=== PATIENT | female | born 1940 | race Caucasian/White ===

== ENCOUNTER 2018-07-21 16:06 | Emergency (ER) | payer OTHER ==
[~2018-07-21] VITALS: Ht 160 cm; Wt 58.5 kg
[~2018-07-21 16:06] MED LIST: ADULT LOW DOSE81 MG; CRESTOR20 MG; NORVASC2.5 MG; TOPROL XL50 MG; VASOTEC10 MG; XARELTO15 MG PO
[2018-07-21] MEDS ORDERED: LIPITOR20 MG (16:14)
[2018-07-21] MEDS ORDERED: HYDROCHLOROTHIA25 MG (16:15)
[2018-07-21] MEDS ORDERED: ATORVASTATIN CA10 MG (16:15)
== END 2018-07-21 17:47 | disposition home or self-care (01) ==
LOC: ER 16:06
DX: M47.896 Other spondylosis, lumbar region (principal); M54.5 Low back pain

== ENCOUNTER 2020-01-05 12:53 | Emergency (ER) | payer OTHER ==
[~2020-01-05] VITALS: Ht 157.5 cm; Wt 54.4 kg
[~2020-01-05 12:53] MED LIST changes: +ATORVASTATIN CA10 MG; +HYDROCHLOROTHIA25 MG; +LIPITOR20 MG
[2020-01-05] MEDS ORDERED: LEVO-T100 MCG PO (13:02)
[2020-01-05] MEDS ORDERED: ISOSORBIDE DINI30 MG PO (13:02)
[2020-01-05] MEDS ORDERED: CIPRO500 MG PO (14:52)
== END 2020-01-05 14:53 | disposition home or self-care (01) ==
LOC: ER 12:53
DX: R30.0 Dysuria (principal); Z03.818 Encounter for observation for suspected exposure to other biological agents ruled out

== ENCOUNTER 2021-01-20 10:04 | Emergency (ER) | payer OTHER ==
[~2021-01-20] VITALS: Ht 157.5 cm; Wt 59.9 kg
[~2021-01-20 10:04] MED LIST changes: +CIPRO500 MG PO; +ISOSORBIDE DINI30 MG PO; +LEVO-T100 MCG PO
[2021-01-20] MEDS ORDERED: VISTARIL25 MG PO (14:49)
== END 2021-01-20 15:29 | disposition home or self-care (01) ==
LOC: ER 10:04
DX: R00.2 Palpitations (principal); R53.81 Other malaise; F41.8 Other specified anxiety disorders

== ENCOUNTER 2021-07-07 08:55 | Emergency (ER) | payer OTHER ==
[~2021-07-07] VITALS: Ht 157.5 cm; Wt 5.4 kg
[~2021-07-07 08:55] MED LIST changes: +VISTARIL25 MG PO
[2021-07-07] MEDS ORDERED: ISOSORBIDE MONO30 MG PO (09:08)
[2021-07-07] MEDS ORDERED: SYNTHROID100 MCG PO (09:08)
== END 2021-07-07 15:49 | disposition home or self-care (01) ==
LOC: ER 08:55
DX: K29.70 Gastritis, unspecified, without bleeding (principal); K21.9 Gastro-esophageal reflux disease without esophagitis; R10.13 Epigastric pain

== ENCOUNTER 2021-07-12 08:00 | Outpatient (CLI) | payer OTHER ==
[~2021-07-12 08:00] MED LIST changes: +ISOSORBIDE MONO30 MG PO; +SYNTHROID100 MCG PO
== END 2021-07-12 08:30 | disposition home or self-care (01) ==
LOC: PPH VACUNA 08:00
PROVIDERS: ATTEND Emergency Medicine Pediatric Emergency Medicine
DX: Z23 Encounter for immunization (principal)

== ENCOUNTER 2022-01-08 06:27 | Emergency (ER) | payer OTHER ==
[~2022-01-08] VITALS: Ht 157.5 cm; Wt 55.8 kg
== END 2022-01-08 15:23 | disposition home or self-care (01) ==
LOC: ER 06:27
DX: R10.31 Right lower quadrant pain (principal); K57.30 Diverticulosis of large intestine without perforation or abscess without bleeding; N28.1 Cyst of kidney, acquired; I70.90 Unspecified atherosclerosis; I10 Essential (primary) hypertension

== ENCOUNTER 2024-08-23 20:58 | Emergency (ER) | payer OTHER ==
[~2024-08-23] VITALS: Ht 154.9 cm; Wt 49.9 kg
[2024-08-23] MEDS ORDERED: VASOTEC20 MG PO (21:17)
[2024-08-23] MEDS ORDERED: LASIX20 MG PO (21:18)
[2024-08-23] MEDS ORDERED: NORVASC5 MG PO (21:18)
[2024-08-23] MEDS ORDERED: ATORVASTATIN CA10 MG PO (21:19)
[2024-08-23] MEDS ORDERED: ACETAMINOPHEN 500 MG GEL..CAP PO ONE ×2 (23:00→23:09)
[2024-08-23] MEDS ORDERED: LEVALBUTEROL HCL 0.63 MG/3 ML SOLUTION IH ONE (23:00)
[2024-08-23 23:34] LABS: HEMATOCRIT 41.8 % (36.0-45.00); HEMOGLOBIN 13.8 g/dL (12.0-15.00); MEAN CELL VOLUME 88.5 fL (80.00-100.00); MEAN CORPUSCULAR HEMOGLOBIN 29.3 pg (27.00-32.0); MEAN CORPUSCULAR HGB CONC 33.1 g/dl (32.0-36.0); PLATELET COUNT 387 K/uL (150-450); RED BLOOD COUNT 4.72 M/uL (4.00-6.00); RED CELL DISTRIBUTION WIDTH 13.8 % (11.5-14.5)
[2024-08-24] MEDS ORDERED: LEVALBUTEROL HCL 0.63 MG/3 ML SOLUTION IH ONE (00:03)
[2024-08-24 00:07] LABS: ALBUMIN 4.4 gm/dL (3.4-5.0); BILIRUBIN TOTAL 1.35 mg/dL (0.3-1.2); CALCIUM 9.7 mg/dL (8.5-10.1); CREATININE SERUM 0.8 mg/dL (0.55-1.02); GFR 68.5; GLOBULINA 3.3 G/DL (2.4-3.5); POTASSIUM 4.29 mEq/L (3.5-5.1); TOTAL PROTEIN 7.7 gm/dL (6.4-8.2)
[2024-08-24 01:29] LABS: PH,URINE 5.5 (5.0-8.0); URINE APPEARANCE Clear; URINE BILIRRUBIN Negative (NEGATIVE); URINE BLOOD Negative; URINE COLOR Yellow; URINE GLUCOSE Negative (NEGATIVE); URINE KETONE Negative (NEGATIVE); URINE LEUKOCYTE Small; URINE NITRATE Negative; URINE PROTEIN Negative (NEGATIVE); URINE UROBILINOGEN 0.2 E.U./dl
[2024-08-24 01:32] LABS: URINE BACTERIA 37.9 uL (0.0-1933); URINE EPITHELIAL CELLS 1.8 uL (0.0-38.8); URINE WBC 21.2 uL (0.0-23.2)
[2024-08-24 01:50] LABS: URINE RBC 0.5 uL (0.0-20.8)
== END 2024-08-24 02:45 | disposition home or self-care (01) ==
LOC: ER 21:01
PROVIDERS: Emergency Medicine
DX: J06.9 Acute upper respiratory infection, unspecified (principal); R06.02 Shortness of breath; J45.909 Unspecified asthma, uncomplicated; I10 Essential (primary) hypertension; E03.8 Other specified hypothyroidism; Z20.822 Contact with and (suspected) exposure to COVID-19

== ENCOUNTER 2024-09-04 05:38 | Day surgery (SDC) | payer OTHER ==
[~2024-09-04 05:38] MED LIST changes: +ATORVASTATIN CA10 MG PO; +LASIX20 MG PO; +NORVASC5 MG PO; +VASOTEC20 MG PO
== END 2024-09-04 12:05 | disposition home or self-care (01) ==
LOC: CIR.AMB 05:38
PROVIDERS: ATTEND Internal Medicine
DX: K86.2 Cyst of pancreas (principal); K29.00 Acute gastritis without bleeding; K31.7 Polyp of stomach and duodenum; I10 Essential (primary) hypertension; E03.8 Other specified hypothyroidism